=== PATIENT | male | born 1970 | race Two or more races ===

== ENCOUNTER 2022-04-21 15:27 | Emergency (ER) | payer SELFPAY ==
[2022-04-21 15:46] VITALS: BP 155/99
[2022-04-21] MEDS ORDERED: TETANUS-DIPTH-ACEL PERTUSSIS 0.5ML SYR Tdap IM ONE (16:30)
[2022-04-21] MEDS ORDERED: KETOROLAC TROMETH 60MG/2ML VIAL IM ONE ×2 (16:30→16:45)
[2022-04-21] MEDS ORDERED: LIDOCAINE 2%HCL (LOCAL ANESTH.) INJ 10ml MDV ONE (16:33)
[2022-04-21] MEDS ORDERED: cefTRIAXone SOD 1,000 MG VL ONE (16:35)
[2022-04-21] MEDS ORDERED: cefTRIAXone SOD 1,000 MG VL IM ONE (16:45)
[2022-04-21] MEDS ORDERED: LIDOCAINE 1% HCL (LOCAL ANESTH.) INJ 20ML MDV IJ ONE (16:45)
[2022-04-21] MEDS ORDERED: IBUP800T27 PO (17:22)
[2022-04-21] MEDS ORDERED: AMOX-277 PO (17:22)
== END 2022-04-21 17:20 | disposition home or self-care (01) ==
LOC: EDSEX 15:27 → ER 15:27
DX: S51.811A Laceration without foreign body of right forearm, initial encounter (principal); S51.012A Laceration without foreign body of left elbow, initial encounter; S70.312A Abrasion, left thigh, initial encounter; S51.851A Open bite of right forearm, initial encounter; S51.052A Open bite, left elbow, initial encounter; S71.152A Open bite, left thigh, initial encounter; W54.0XXA Bitten by dog, initial encounter; Y93.89 Activity, other specified; Y92.89 Other specified places as the place of occurrence of the external cause; Y99.8 Other external cause status
CPT/HCPCS: 12002; 73080; 90471; 90715; 96372; 99284; J0696; J2001; J1885